=== PATIENT | female | born 1995 | race Caucasian/White ===

== ENCOUNTER 2024-11-03 23:55 | Inpatient (IN) ==
[2024-11-04] MEDS ORDERED: LIDOCAINE 1% LOCAL 20 ML VIAL INFIL PRN (01:31)
[2024-11-04] MEDS ORDERED: miSOPROStoL 50 MCG TAB PO ONE (01:31)
[2024-11-04] MEDS ORDERED: CALCIUM CARBONATE 500 MG CHEWABLE TAB PO PRN (01:31)
[2024-11-04] MEDS ORDERED: ACETAMINOPHEN 500 MG TAB PO PRN (01:31)
[2024-11-04] MEDS ORDERED: OXYTOCIN 30 UNITS/NSS 30 UNITS/500 ML BAG IV PRN (01:31)
[2024-11-04] MEDS ORDERED: LACTATED RINGER'S 1,000 ML IV PRN (01:31)
--- NOTE | 2024-11-04 01:39 | History & Physical Report ---
Date of Service November 04, 2024 Assessment & Plan (1) Ruptured, membranes, premature: Plan: Induction of labor. 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 History of Present Illness Chief Complaint: Intrauterine 38 weeks gestation. Gush of amniotic fluid. Primary Care Provider: NO PCP Patient is a 29-year-old 2 para 0 she is in good general health. Been followed in the [facility] office for care and delivery. Been well dated with a first trimester ultrasound. Due date 11/18/2024. She states that 8 PM on 11/03/2024 she had a gush of amniotic fluid ran down her leg. Call the office was told to come in for evaluation. She got to maternity she had a gush of amniotic fluid which was nitrazine positive. At this point she was diagnosed with a premature rupture membranes. Patient also states she has been having Benigno Corbin contractions of good intensity the past week. Allergies Allergy/AdvReac Type Severity Reaction Status Date / Time No Known Allergies Allergy Verified 11/04/24 00:16 Home Medications Medication Instructions Recorded Confirmed Type vits no.124-ferrous fum 1 tab PO DAILY 11/04/24 11/04/24 History 27 mg iron-folic acid 800 mcg tablet ( Vitamin) Past Med/Surg History Problem List (Updated 11/04/24 @ 01:38 by Ulises Mata MD) Ruptured, membranes, premature Surgical History (Updated 11/04/24 @ 00:15 by Inez Arnold RN) H/O inguinal hernia repair Social History Smoking Status: Former smoker Tobacco Type: Cigarettes Smoking End Date: 10 years ago; Hx Alcohol Use: No Hx Substance Use: No Preferred Language: Estonian Communication Ability: Effective Step Down Nurse Required: No Beliefs That Will Affect Care: None marital status: Current Living Situation: Spouse Other Information That Helps Us Care for You: No Assistive Devices: Glasses Physical Exam Physical Exam: Patient appeared 29-year-old white female alert oriented x 3 cooperative no acute distress. Heart had a regular rhythm S1 and S2 are normal. Lungs are clear to auscultation and percussion. Trachea was midline there was no cervical adenopathy. Abdomen was consistent with a 7 pound fetus. There was no CVA tenderness there was no abdominal tenderness contractions were not palpable at this time. There was no calf tenderness. Pelvic exam revealed the cervix to be mid position soft 50% effaced closed vertex presentation at a -2 station. Results & Data Results & Data Vital Signs (Past 12 Hours) Vital Signs Temp Pulse Resp BP 11/04/24 00:13 36.7 C 85 18 135/86
[2024-11-04] MEDS: PENICILLIN GK 6 MU in DEXTROSE 5% 250 ML IV STA (02:04)
[2024-11-04 02:18] LABS: Hematocrit (blood only) 36.9 % (37.0-47.0); Hemoglobin 12.6 g/dl (12.0-16.0); Mean Corpuscular Hemoglobin 32.5 pg (25.0-34.0); Mean Corpuscular Hgb Conc 34.1 g/dL (32.0-36.0); Mean Corpuscular Volume 95.1 fL (80.0-100.0); Mean Platelet Volume 10.8 fL (9.4-12.4); Platelet Count 232 K/uL (130-400); RDW Coefficient of Variation 14.1 % (11.5-14.5); RDW Standard Deviation 48.3 fL (36.4-46.3); Red Blood Count 3.88 M/uL (4.20-5.40)
[2024-11-04] MEDS: PENICILLIN GK 3 MU in DEXTROSE 5% 100 ML IV PRN (06:12)
[2024-11-04 10:26] VITALS: BP 118/79; PULSE 89
--- NOTE | 2024-11-04 11:06 | Obstetrical Progress Note ---
Date of Service November 04, 2024 Subjective Patient re-evaluated for ruptured membranes. She was admitted after she took a tub bath yesterday and then got out of the tub and noted leakage down her leg. She presented to L&D last night and upon arrival she stated that she was not leaking and was dry. An AmniSure was done and after having this done she experienced some pain and some spotting after the swab was placed in the vagina. The AmniSure was negative but the Nitrazine was positive according to the patie nt. Physical Exam Constitutional WD/WN, vitals as above Genitourinary Speculum/Bimanual Exam: normal bimanual exam and normal appearance of the vagina OB Exam Abdomen: + fundal height and + vertex Manual OB Exam: + cervical dilation Sterile speculum exam was done by me in the presence of the nurse. No bleeding or leakage noted from the vagina. Patient coughed several times with no fluid leakage at all on Valsalva. The discharge noted was Nitrazine negative. Slide made for ferning which was negative. Cervix was long/closed and thick. Discharge is probably mucous plug that is present. Patient was told of the finding consistent with not being ruptured and was discharged home. Follow up visit next week in office. Results & Data Vital Signs (Past 12 Hours) Vital Signs Temp Pulse Resp BP 11/04/24 10:24 89 118/79 11/04/24 08:02 37.4 C 104 H 16 110/75 11/04/24 06:19 16 11/04/24 06:19 36.8 C 75 16 105/56 L 11/04/24 04:42 16 11/04/24 04:42 37.0 C 16 11/04/24 03:10 81 18 132/82 11/04/24 01:59 18 11/04/24 01:59 37.2 C 18 11/04/24 00:13 36.7 C 85 18 135/86
[2024-11-04 14:45] VITALS: RESP 18; TEMP 98.4
== END 2024-11-04 10:55 | disposition home or self-care (01) | DRG 833 ==
LOC: OPB 23:55 → 4S1 23:56